=== PATIENT | male | born 1970 | race Caucasian/White ===

== ENCOUNTER 2020-06-26 08:22 | Emergency (ER) | payer BC, SELFPAY ==
[2020-06-26] VITALS (12 sets, daily range): BP systolic 134–154; BP diastolic 81–96; PULSE 79–104; RESP 12–18; TEMP 36.7–36.9; O2SAT 92–98; BMI 32.1
--- NOTE | 2020-06-26 08:15 | ECG_ITS ---
APPROVED REPORT Exam: Resting ECG HR:97 bpm ECG Measurements Heart Rate 97 AXES VA 138 P 54 QRSd 86 QRS 55 QT 324 T 51 QTc 411 Conclusion Normal sinus rhythm Normal ECG Electronically signed by : Pal Juarez, 06/26/2020 17:56:18
--- NOTE | 2020-06-26 08:25 | XR_ITS ---
PROCEDURE: XR CHEST PORTABLE CLINICAL HISTORY: cp Chest pain COMPARISON: No exams were available for comparison FINDINGS: The cardiomediastinal silhouette and pulmonary vascularity are within normal limits. There are slight increased markings in the right infrahilar region and may be due to an area of patchy atelectasis or infiltrate versus summation artifact. The remaining lungs are clear. No acute bony abnormalities. IMPRESSION: Possible patchy area of atelectasis or infiltrate in the right infrahilar region Dictated by: Skip Kramer MD 06/26/2020 09:50 Skpi Kramer MD in [place] 06/26/2020 09:50
--- NOTE | 2020-06-26 08:25 | [facility].EDCP ---
ED Disposition Clinical Impression: Chest pain Qualifiers: Chest pain type: unspecified Qualified Code(s): R07.9 - Chest pain, unspecified GERD (gastroesophageal reflux disease) Qualifiers: Esophagitis presence: esophagitis presence not specified Qualified Code(s): K21.9 - Gastro-esophageal reflux disease without esophagitis Disposition: Home, Self-Care Condition on Discharge: Good Referrals: Arnaldo Burnett MD [Primary Care Provider] - 3 days Time of Disposition: 11:28 - Critical Care Critical Care Time: No Attestation: On , the high probability of a clinically significant, sudden or life threatening deterioration of the following system(s) required my full and direct attention, intervention and personal management. The time I documented below is in addition to time spent performing reported procedures but includes the following listed in this critical care notation. Medical Decision Making - Medical Records Medical records reviewed: Yes: I reviewed the patient's medical records. - Chance Inquiry Pt receiving controlled substance: No Vital Signs: 06/26/20 08:23 06/26/20 09:11 06/26/20 09:15 Temperature 98.4 F Temperature Source Oral Pulse Rate 84 82 Pulse Rate [Right] 88 Respiratory Rate 16 14 14 Blood Pressure 151/93 H Blood Pressure [Right Arm] 147/81 H Blood Pressure Mean Blood Pressure Mean [Right Arm] 103 02 Sat by Pulse Oximetry 97 95 93 L Oxygen Delivery Method Room Air 06/26/20 09:30 06/26/20 09:45 06/26/20 10:00 Temperature Temperature Source Pulse Rate 79 80 84 Pulse Rate [Right] Respiratory Rate 14 14 14 Blood Pressure 135/86 154/89 H Blood Pressure [Right Arm] Blood Pressure Mean 101 110 Blood Pressure Mean [Right Arm] 02 Sat by Pulse Oximetry 93 L 92 L 98 Oxygen Delivery Method 06/26/20 10:15 06/26/20 10:30 06/26/20 10:45 Temperature Temperature Source Pulse Rate 84 87 Pulse Rate [Right] Respiratory Rate 16 12 14 Blood Pressure 134/83 Blood Pressure [Right Arm] Blood Pressure Mean 100 Blood Pressure Mean [Right Arm] 02 Sat by Pulse Oximetry 96 97 Oxygen Delivery Method 06/26/20 11:00 06/26/20 11:15 Temperature Temperature Source Pulse Rate 84 84 Pulse Rate [Right] Respiratory Rate 16 Blood Pressure 143/85 H Blood Pressure [Right Arm] Blood Pressure Mean 97 Blood Pressure Mean [Right Arm] 02 Sat by Pulse Oximetry 97 97 Oxygen Delivery Method - Lab Data Lab Results 06/26/20 08:24: WBC 9.7, RBC 5.42, Hgb 17.2, Hct 50.0, MCV 92.2, MCH 31.7 H, MCHC 34.4, RDW 13.6, Plt Count 333, MPV 6.8 L, Neut % (Auto) 85.6 H, Lymph % (Auto) 9.9 L, [place] % (Auto) 3.3, Eos % (Auto) 1.1, Baso % (Auto) 0.2, Neut # (Auto) 8.3 H, Lymph # (Auto) 1.0, [place] # (Auto) 0.3, Eos # (Auto) 0.1, Baso # (Auto) 0.0, Total Counted 100, Neutrophils % (Manual) 88 H, Lymphocytes % (Manual) 9 L, Monocytes % (Manual) 3, Platelet Estimate Normal, RBC Morphology Normal 06/26/20 08:24: Sodium 141, Potassium 4.0, Chloride 107, Carbon Dioxide 23, Anion Gap 15.0, BUN 18, Creatinine 1.10, Estimated Creat Clear 121, Estimated GFR 71, Est GFR ( Amer) 86, Glucose 109 H, Calcium 10.2, Troponin I < 0.01 06/26/20 10:36: Troponin I < 0.01 Result diagrams: 06/26/20 08:24 06/26/20 08:24 Orders (Tests/Meds): ED MEDICATIONS Discontinued Medications Generic Name Dose Route Start Last Admin Trade Name Freq PRN Reason Stop Dose Admin Aspirin 325 mg 06/26/20 08:24 06/26/20 08:32 Aspirin 325mg Tablet PO 06/26/20 08:25 325 mg ONCE ONE Administration Belladonna Alkaloids 60 ml 06/26/20 10:51 06/26/20 10:56 Gi Cocktail 60ml Udc PO 06/26/20 10:52 60 ml ONCE ONE Administration ORDERS Category Date Time Status Troponin I Q3H Lab 06/26/20 14:30 Ordered - ECG Data Tracing #1 Normal sinus rhythm, 97 bpm, no ST elevation or depression, no ectopy, normal intervals. ECG initial impression da
[2020-06-26 08:34] LABS: Basophils % 0.2 % (0.1-2.0); Eosinophils # 0.1 K/mm3 (0.0-0.4); Eosinophils % 1.1 % (0.1-12.0); Hemoglobin 17.2 g/dL (14.1-18.0); Lymphocytes % 9.9 % (10-50); Mean Corpuscular HGB Conc 34.4 g/dL (31.8-35.4); Mean Corpuscular Hemoglobin 31.7 pg (27.0-31.2); Mean Corpuscular Volume 92.2 fl (80-94); Mean Platelet Volume 6.8 fl (7.4-10.4); Monocytes # 0.3 K/mm3 (0.1-1.0); Monocytes % 3.3 % (1.7-9.3); Neutrophils # 8.3 K/mm3 (1.8-7.8); Neutrophils % 85.6 % (37.0-80.0); Platelet Count 333 K/mm3 (142-424); Red Blood Count 5.42 M/mm3 (4.60-6.20); Red Cell Distribution Width 13.6 % (11.5-17.5); White Blood Count 9.7 K/mm3 (4.8-10.8)
[2020-06-26 08:35] LABS: MANUAL DIFFERENTIAL MANUAL DIFFERENTIAL (MANUAL DIFF)
[2020-06-26 08:41] LABS: Chloride 107 mmol/L (98-107); Sodium 141 mmol/L (136-145)
[2020-06-26 08:44] LABS: Blood Urea Nitrogen 18 mg/dl (9-20); Creatinine Clearance Estimated 121 mL/min (50-200); Estimated Glomerular Filt Rate 71 ml/min (>60); GFR (African American) 86 ML/MIN (>60)
[2020-06-26 08:45] LABS: Calcium 10.2 mg/dl (8.4-10.2); Carbon Dioxide 23 mmol/L (22.0-30.0); Glucose 109 mg/dl (74-100)
[2020-06-26 08:57] LABS: Lymphocytes % 9 % (10-50); Monocytes % 3 % (2-9); Neutrophils % 88 % (42-76); Platelet Estimate Normal; RBC Morphology Normal; Total Cells Counted 100
[2020-06-26 09:08] LABS: Troponin I < 0.01 ng/ml (0.00-0.034)
--- NOTE | 2020-06-26 10:48 | PC.NURSE ---
MD at bedside discussing care.
[2020-06-26 11:17] LABS: Troponin I < 0.01 ng/ml (0.00-0.034)
== END 2020-06-26 11:42 | disposition home or self-care (01) ==
PROVIDERS: Emergency Provider Family Medicine; PCP Family Medicine
DX: R07.9 Chest pain, unspecified (principal); K21.9 Gastro-esophageal reflux disease without esophagitis; F17.210 Nicotine dependence, cigarettes, uncomplicated; Z88.0 Allergy status to penicillin
CPT/HCPCS: 71045; 80048; 84484; 85007; 85025; 93005; 99283